=== PATIENT | male | born 2000 | race Caucasian/White ===

== ENCOUNTER 2019-07-25 05:16 | Emergency (ER) | payer OTHER ==
--- NOTE | 2019-07-25 06:29 | ED Physician Documentation ---
PD HPI UPPER EXT INJURY - Stated complaint Stated Complaint: R HAND INJURY - History obtained from History obtained from: Patient - History of Present Illness Location: Right, Hand Type of injury: Crush Where injury occurred: Work ([employer]) Timing - onset: How many hours ago (1) Timing - duration: Hours (1) Timing - details: Abrupt onset Pain level max: 8 Pain level now: 6 Improved by: Rest, Ice, Immobilization Worsened by: Moving, Palpating Associated symptoms: Swelling. No: Weakness, Numbness, Tingling Contributing factors: No: Anticoagulated, Prior ortho surgery - Additonal information Additional information: pt is right handed Review of Systems Constitutional: denies: Fever, Chills Throat: denies: Sore throat Cardiac: denies: Chest pain / pressure Respiratory: denies: Cough Skin: denies: Rash Musculoskeletal: denies: Neck pain, Back pain Neurologic: denies: Headache PD PAST MEDICAL HISTORY - Past Medical History Past Medical History: No - Past Surgical History Past Surgical History: No - Present Medications Home Medications: Ambulatory Orders Medication Instructions Recorded Confirmed Ibuprofen [Motrin] 800 mg PO Q8H PRN #30 tablet 07/25/19 - Social History Does the pt smoke?: No Smoking Status: Never smoker - Family History Family history: reports: Non contributory - Immunizations Immunizations are current?: Yes PD ED PE NORMAL - Vitals Vital signs reviewed: Yes - General General: Alert and oriented X 3, No acute distress - HEENT HEENT: Moist mucous membranes - Derm Derm: Warm and dry - Extremities Extremities: Other (Tender to palpation over the dorsum of the right hand. There is an abrasion over the second metacarpal. No deformity. There is tenderness to palpation over the second metacarpal. No snuffbox tenderness. No tenderness over the wrist. Neurovascularly intact. Full range of motion of all digits.) - Neuro Neuro: Alert and oriented X 3 Results - Vitals Vitals: Vital Signs - 24 hr 07/25/19 07/25/19 05:35 06:48 Temperature 36.1 C L Heart Rate 104 H 77 Respiratory 16 15 Rate Blood Pressure 159/86 H 145/88 H O2 Saturation 99 98 Oxygen O2 Source Room air - Rads (name of study) Right hand x-ray Radiology: Prelim report reviewed, EMP read contemporaneously, See rad report (No acute abnormality) PD MEDICAL DECISION MAKING - ED course Complexity details: reviewed results, re-evaluated patient, considered differential, d/w patient ED course: 19-year-old male with a crush injury to the right hand. No fractures on x-ray. We will continue supportive care and have him follow-up with his doctor. NSAIDs for pain. Neurovascular intact. Patient counseled regarding signs and symptoms for which I believe and urgent re-evaluation would be necessary. Patient with good understanding of and agreement to plan and is comfortable going home at this time This document was made in part using voice recognition software. While efforts are made to proofread this document, sound alike and grammatical errors may occur. Departure - Departure Disposition: Home, Self Care Clinical Impression: Contusion of right hand Qualifiers: Encounter type: initial encounter Qualified Code(s): S60.221A - Contusion of right hand, initial encounter Hand crush injury Qualifiers: Encounter type: sequela Laterality: right Qualified Code(s): S67.21XS - Crushing injury of right hand, sequela Condition: Good Instructions: ED Contusion Hand Follow-Up: JOANN HU MD [Primary Care Provider] - Within 1 week Prescriptions: Ibuprofen [Motrin] 800 mg PO Q8H PRN #30 tablet PRN Reason: PAIN &/OR FEVER Comments: Return if you worsen. There is no fracture on your x-rays today. If you are still having pain in 1 week, you should be reevaluated with your doctor. Forms: Activity restrictions Discharge Date/Time: 07/25/19 06:52
--- NOTE | 2019-07-25 06:30 | XRAY Report ---
Reason: hand crush injury Procedure Date: 07/25/2019 Accession Number: [id number] / [id number] Procedure: XR - Hand 3 View RT CPT Code: Final Report FULL RESULT: EXAM: RIGHT HAND RADIOGRAPHY EXAM DATE: 07/25/2019 06:17 AM. CLINICAL HISTORY: Hand crush injury. Hand caught between cart and hit. Pain in the second metacarpal. COMPARISON: None. TECHNIQUE: 4 views. FINDINGS: Bones: No acute displaced fractures or suspicious bony lesion. Joints: No dislocation. Soft Tissues: No significant soft tissue swelling. IMPRESSION: No acute osseous abnormality demonstrated. [facility]
[2019-07-25 06:49] VITALS: BP 145/88
== END 2019-07-25 06:52 | disposition home or self-care (01) ==
LOC: ED 05:16
DX: S60.221A Contusion of right hand, initial encounter (principal); S67.21XA Crushing injury of right hand, initial encounter; S60.410A Abrasion of right index finger, initial encounter; X58.XXXA Exposure to other specified factors, initial encounter; Y99.0 Civilian activity done for income or pay
CPT/HCPCS: 99283; 99284